=== PATIENT | female | born 1940 | race Caucasian/White ===

== ENCOUNTER 2017-03-12 09:53 | Outpatient (CLI) | payer OTHER, MEDICARE ==
--- NOTE | 2017-03-12 10:38 | DIAGNOSTIC IMAGING REPORT ---
PROCEDURE: DEXA BONE DENSITY STUDY CLINICAL INDICATION: SCREENING COMPARISON: DEXA scan 09/15/2011. FINDINGS: LUMBAR SPINE: Bone mineral densities 1.074, T-score 0.2, normal (previously bone mineral density 1.152, T-score 1.0, 6.8% bone mineral density loss). LEFT HIP: Bone mineral density 0.673, T-score -2.2, osteopenia (previously bone mineral density 0.781, T-score -1.3, 13.8% bone mineral density loss). LEFT FEMORAL NECK: Bone mineral density 0.617, T-score -2.1, osteopenia (previously bone mineral density 0.6 98, T-score -1.4, 11.6% bone mineral density loss). (T score greater or equal to -1.0 to: NORMAL) (T score from -1.1 to -2.4: OSTEOPENIA) (T score ess than or equal to -2.5: OSTEOPOROSIS) IMPRESSION: 1. Normal lumbar spine bone mineral density with 6.8% bone mineral density loss 2. Left hip osteopenia with 30.8% bone mineral density loss 3. 10-year fracture risk: Major osteoporotic fracture 15%, hip fracture 4.2%.
--- NOTE | 2017-03-12 15:28 | DIAGNOSTIC IMAGING REPORT ---
PROCEDURE: MG BILATERAL SCREENING W/CAD INDICATION: SCREENING TECHNIQUE: Standard CC and MLO views bilaterally. Computer aided detection was used. COMPARISON: 09/15/2011, 03/09/2008 FINDINGS: Mildly dense fibroglandular tissue is present bilaterally. Vascular and dystrophic calcifications are present bilaterally. No developing densities, areas of architectural distortion, or suspicious microcalcifications. IMPRESSION: 1. Stable mammograms without radiographic evidence of malignancy. RESULT CODE: 2- Benign findings. A. A negative report should not delay biopsy if a dominant or clinically suspicious mass is present. 10-15% of cancers are not identified by x-ray. B. A negative report may reinforce clinical impression. C. Adenosis and dense breasts may obscure an underlying neoplasm. D. False positive reports average 6-10%. E.. A yearly screening mammogram is recommended. A reminder letter will be scheduled.
== END 2017-03-12 23:00 ==
LOC: MAM SRH 09:53
DX: M85.88 Other specified disorders of bone density and structure, other site (principal); Z12.31 Encounter for screening mammogram for malignant neoplasm of breast